=== PATIENT | female | born 1985 | race African-American/Black ===

== ENCOUNTER 2023-11-20 15:15 | Emergency (ER) | payer SELFPAY ==
[~2023-11-20] VITALS: Ht 165.1 cm; Wt 59.0 kg
[2023-11-20] MEDS: LORAZEPAM 2MG/ML INJ IV STA (15:31)
[2023-11-20] MEDS: SODIUM CHLORIDE 0.9% 1,000 ML IV ONE ×2 (15:45→19:12)
[2023-11-20] MEDS: HALOPERIDOL LACTATE 5MG/ML VIAL IM ONE (16:34)
[2023-11-20] MEDS: LORAZEPAM 2MG/ML INJ IM ONE (16:34)
[2023-11-20 17:07] LABS: BASOPHILS % 0.3 % (0.0-2.0); EOSINOPHILS % 0.1 % (0.0-5.0); HEMATOCRIT. 41.9 % (36.0-48.0); HEMOGLOBIN. 14.4 g/dL (12.0-16.0); LYMPHOCYTES % 15.4 % (20.0-50.0); MEAN CORPUSCULAR HEMOGLOBIN 31.3 pg (28.0-32.0); MEAN CORPUSCULAR HGB CONC 34.3 g/dL (31.0-37.0); MEAN CORPUSCULAR VOLUME 91.2 fL (81.0-99.0); MEAN PLATELET VOLUME 6.9 fl (7.4-10.4); MONOCYTES % 4.1 % (2.0-8.0); NEUTROPHILS % 80.1 % (40.0-76.0); PLATELET 315 x1000/uL (130-400); RED CELL DISTRIBUTION WIDTH 13.4 % (11.6-14.6); WHITE BLOOD COUNT 8.2 x1000/uL (4.5-11.0)
[2023-11-20 17:14] LABS: CLARITY URINE CLEAR (CLEAR); COLOR URINE DARK YELLOW (YELLOW); GLUCOSE URINE NEGATIVE (NEGATIVE); KETONES URINE TRACE (NEGATIVE); LEUKOCYTE ESTERASE URINE 2+ (NEGATIVE); NITRITE URINE NEGATIVE (NEGATIVE); OCCULT BLOOD URINE NEGATIVE (NEGATIVE); PROTEIN URINE 1+ (NEGATIVE); SPECIFIC GRAVITY URINE 1.023 (1.005-1.030)
[2023-11-20 17:23] LABS: *AMPHETAMINES SCREEN URINE PRESUMPTIVE POSITIVE (NEGATIVE); *BARBITURATES SCREEN URINE NEGATIVE (NEGATIVE); *BENZODIAZEPINES SCREEN URINE NEGATIVE (NEGATIVE); *COCAINE SCREEN URINE PRESUMPTIVE POSITIVE (NEGATIVE); CANNABINOID URINE SCREEN PRESUMPTIVE POSITIVE (NEGATIVE); ECSTASY MDMA SCREEN URINE NEGATIVE (NEGATIVE); METHADONE URINE SCREEN Neg (NEGATIVE); OPIATES URINE SCREEN NEGATIVE (NEGATIVE); PHENCYCLIDINE URINE SCREEN NEGATIVE (NEGATIVE)
[2023-11-20 17:24] LABS: HCG SCREEN NEGATIVE
[2023-11-20 17:31] LABS: ACETAMINOPHEN < 2 ug/mL (10-30); ALANINE AMINOTRANSFERASE 8 IU/L (10-49); ALBUMIN 4.6 g/dL (3.2-4.8); ASPARTATE AMINOTRANSFERASE 19 IU/L (<34); BILIRUBIN TOTAL 0.5 mg/dL (0.1-1.0); CALCIUM 9.6 mg/dL (8.7-10.4); CARBON DIOXIDE 29 mEq/L (21-32); CHLORIDE 103 mEq/L (98-107); CREATININE 0.9 mg/dL (0.6-1.0); GLUCOSE 124 mg/dL (70-105); PROTEIN TOTAL 8.3 g/dL (6.0-8.3); SODIUM 137 mEq/L (136-145); TROPONIN I HIGH SENSITIVITY 7 ng/L (3.0-34); UREA NITROGEN BLOOD 13 mg/dL (9-23)
[2023-11-20 17:32] LABS: ETHANOL BLOOD < 10 mg/dL (<10)
[2023-11-20 17:39] LABS: BACTERIA URINE 1+; RBC URINE 0-2 /hpf (0-2); SQUAMOUS EPITHELIAL CELL URINE 1+ /lpf (RARE/1+)
[2023-11-20 17:40] LABS: TRICHOMONAS URINE 1+
[2023-11-20] MEDS ORDERED: NITROFURANTOIN 100MG M/M CAPSULE PO STA (17:48)
[2023-11-20 18:00] VITALS: O2SAT 98
[2023-11-20] MEDS ORDERED: METRONIDAZOLE 500MG TABLET PO ONE (18:00)
[2023-11-20] MEDS: NITROFURANTOIN 100MG M/M CAPSULE PO NR (19:17)
[2023-11-20] MEDS: METRONIDAZOLE 500MG TABLET PO NR (19:20)
[2023-11-20 23:44] VITALS: TEMP 98.3
[2023-11-21 09:00] VITALS: BP 103/51; PULSE 101; RESP 14
== END 2023-11-21 11:30 | disposition home or self-care (01) ==
LOC: ER 15:15
DX: R45.851 Suicidal ideations (principal); R00.0 Tachycardia, unspecified; F15.129 Other stimulant abuse with intoxication, unspecified; N39.0 Urinary tract infection, site not specified; A59.9 Trichomoniasis, unspecified; Z20.822 Contact with and (suspected) exposure to COVID-19
CPT/HCPCS: 80053; 80305; 81003; 80307; 80329; 80320; 84703; 85025; 84484; 36415; 93005; 96360; 96361; 96372; 99285; 87426; J1630; J2060; J7030; Z7610 ×3; G0480